=== PATIENT | male | born 1990 | race Caucasian/White ===

== ENCOUNTER 2025-02-11 17:08 | Emergency (ER) | payer OTHER ==
[~2025-02-11] VITALS: Ht 182.9 cm; Wt 85.3 kg
[2025-02-11 17:12] VITALS: BP 129/70; TEMP 98.1; O2SAT 99
[2025-02-11] MEDS ORDERED: ONDA4TAB11 PO (17:22)
== END 2025-02-11 17:25 | disposition home or self-care (01) ==
LOC: ER 17:14
DX: B34.9 Viral infection, unspecified (principal); R05.9 Cough, unspecified; R09.81 Nasal congestion; R11.2 Nausea with vomiting, unspecified